=== PATIENT | male | born 1950 | race Hispanic/Latino ===

== ENCOUNTER 2017-12-19 10:48 | Day surgery (SDC) | payer OTHER ==
[2017-12-19] MEDS: CYCLOPENTOLATE 1% OPTH 2 ML ONE ×3 (11:00→11:10)
[2017-12-19] MEDS: PHENYLEPHRINE 10% OPTH 5ML ONE ×3 (11:00→11:10)
[2017-12-19] MEDS ORDERED: NS 0.9% VIAL 10 ML ONE (11:09)
[2017-12-19] MEDS ORDERED: BALANCED SALT IRRIG PLAIN 500 ML BTL IRR ONE (11:10)
[2017-12-19] MEDS ORDERED: DUOVISC 1 KIT OPTH ONE (11:10)
[2017-12-19] MEDS ORDERED: EPINEPHRINE/PF 1 MG/ML AMP ONE (11:10)
[2017-12-19] MEDS ORDERED: MOXIFLOXACIN HCL 10 DROPS/ML **OR USE OPTH ONE (11:10)
[2017-12-19] MEDS ORDERED: LIDOCAINE 2% MPF 5 ML VIAL ONE ×2 (11:11→12:31)
[2017-12-19] MEDS ORDERED: TETRACAINE HCL 0.5% 2ML OPTH ONE (11:11)
[2017-12-19] MEDS ORDERED: NA CHLORIDE 0.9% 500 ML ONE (11:11)
[2017-12-19] MEDS ORDERED: BUPIVACAINE 0.25% PF 10 ML VIAL ONE (11:11)
[2017-12-19] MEDS ORDERED: PROPOFOL 200 MG/20 ML VIAL IV ONE (12:31)
--- NOTE | 2017-12-19 13:11 | P.BOP ---
Preoperative diagnosis: Nuclear sclerotic, cortical and posterior subcapsular cataract OS Primary procedure: Phacoemulsification with IOL and LRI OS Estimated blood loss: None Anesthesia: Local (Subtenon's infusion with anesthesia for cataract surgery) Complications: None Implants: [id number] +14.0 Transferred to: Other (Day surgery) Condition: Good
--- NOTE | 2017-12-19 23:41 | OP ---
Date of Procedure: 12/19/2017 Surgeon: Beatriz Menchaca MD Anesthesiologist: 1. Mir Costa CRNA. 2. Edmundo Mcmahon M.D. Preoperative Diagnosis: Nuclear sclerotic, cortical, and posterior subcapsular cataract OS (left eye ). Operation Performed: Phacoemulsification with intraocular lens implant, OS (left eye). Anesthesia: Per cataract surgery. Complications: None. Description Of Procedure: In day surgery, the patient was prepped with Betadine and draped. A conju nctival incision was made in the inferior nasal quadrant with Brandy scissors. A sub-Tenon block c onsisting of a 1:1 mixture of 2% Xylocaine and 0.25% bupivacaine was placed through the conjunctival incision with a blunt cannula. A Honan balloon was placed over the eye and the patient was transferr ed to the operating room. In the operating room the patient was prepped and draped in the usual sterile fashion for ophthalmic surgery. A lid speculum was placed in the OS. Two paracentesis sites were made superiorly and infer iorly in the limbal cornea. Viscoat was placed in the anterior chamber and a crescent blade was used to make a corneal groove and tunnel, and a keratome was used to enter the anterior chamber. Provisc was placed in the anterior chamber and a 360 degree capsulotomy was performed with a cystitome. The lens was hydrodissected with BSS and rotated freely. The lens was removed with a stop and chop tech nique. A 6.81 phaco CDE was used to remove the lens. Residual cortex was removed with the irrigatio n and aspiration. Provisc was placed in the capsular bag. A [id number] +14.0 lens was placed in the caps ular bag without complications. Irrigation and aspiration was used to remove residual viscoelastic. The paracentesis sites were hydrated with BSS. The wound and paracentesis sites were inspected and found to be watertight. Vigamox 0.07 cc was placed intracamerally at the end of the procedure. The eye was irrigated with balanced salt solution. The eye was patched with a soft cotton patch and Rivers metal shield. The patient was returned to day surgery in good condition. Comments: A limbal relaxing incision was created at 95 degrees in the superior quadrant with a 600 m icron blade, a 35 degree arc was created. Residual PSC remained at the end of the procedure. Discharge Instructions: Mr. Soler is discharged to home in good condition and is to follow up with Yasmine Menchaca in the morning. ISAI/DOROTEO Voice ID: [id number] Report ID: [id number]
== END 2017-12-19 13:35 | disposition home or self-care (01) ==
LOC: OR 10:48
PROVIDERS: ATTEND Ophthalmology Retina Specialist
PROC: 08RK3JZ Replacement of Left Lens with Synthetic Substitute, Percutaneous Approach (ICD-10-PCS; principal; 2017-12-19 11:35)
DX: H25.12 Age-related nuclear cataract, left eye (principal); H25.012 Cortical age-related cataract, left eye; H25.042 Posterior subcapsular polar age-related cataract, left eye; I10 Essential (primary) hypertension; E78.00 Pure hypercholesterolemia, unspecified; E11.9 Type 2 diabetes mellitus without complications; Z88.1 Allergy status to other antibiotic agents; Z79.02 Long term (current) use of antithrombotics/antiplatelets; Z79.82 Long term (current) use of aspirin; Z87.891 Personal history of nicotine dependence; Z82.49 Family history of ischemic heart disease and other diseases of the circulatory system; Z83.3 Family history of diabetes mellitus; Z80.9 Family history of malignant neoplasm, unspecified
CPT/HCPCS: 66984; 82962; J0171

== ENCOUNTER 2018-01-30 07:24 | Day surgery (SDC) | payer OTHER ==
--- OUTSIDE RECORDS SUMMARY | 2018-01-30 07:28 | XMS REPORT ---
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 Problem Colonic polyp K63.5 Active Problem Diabetes mellitus type II, E11.9 Active controlled Problem Obesity (BMI 30-39.9) E66.9 Active Problem Allergic rhinitis, seasonal J30.2 Active Problem Edema R60.9 Active Problem Anemia in chronic illness D63.8 Active Problem Hyperlipidemia, mixed E78.2 Active Assessment Anemia in chronic kidney disease D63.1 Active Assessment Hyperlipidemia, mixed E78.2 Active Assessment Obesity (BMI 30-39.9) E66.9 Active Assessment Chronic kidney disease, stage 4 N18.4 Active (severe) Problem Anemia in chronic kidney disease D63.1 Active Problem Chronic kidney disease, stage 4 N18.4 Active (severe) Assessment HTN (hypertension) I10 Active Problem Calculus of kidney and ureter N20.2 Active Assessment Diabetes mellitus type II, E11.9 Active controlled Problem Asbestos exposure Z77.090 Active Medications Medication Code Code Instructions Start End Status Dosage System Date Date Coreg [facility] 57396799405 12.5 MG Orally Active 1 tablet twice daily Ferrous Sulfate [facility] 57467764840 324 (65 Fe) MG Active 1 tablet Orally Once a day Lasix [facility] 86028818175 40 MG Orally Active 1 tablet Once a day Tricor [facility] 72341140511 145 MG Active TAKE 1 TABLET BY MOUTH EVERY DAY Multivitamin [facility] 67514-66526 - Orally Active not defined - [facility] 26312047803 81 MG Orally Active 1 tablet Once a day Plavix [facility] 04272604453 75 MG Orally December Active 1 tablet Once a day 2017 NovoLog Flexpen [facility] 41981821668 100 UNIT/ML Active not Subcutaneous defined Tradjenta [facility] 97720813533 5 MG Active TAKE 1 TABLET BY MOUTH EVERY DAY HydrALAZINE HCl [facility] 12683634604 25 MG Active TAKE 1 TABLET BY MOUTH 3 TIMES A DAY Lipitor [facility] 14724899913 40 MG Orally Active 1 tablet Once a day Levemir Flexpen [facility] 21389938646 100 UNIT/ML Active not Subcutaneous defined Amlodipine [facility] 23985723475 5 MG Orally December Active 1 tablet Besylate Once a day 2017 Results No Known Results Summary Purpose eClinicalWorks Submission
[2018-01-30] MEDS ORDERED: LIDOCAINE HCL/PF 3.5% OPTH GEL ONE (08:01)
[2018-01-30] MEDS ORDERED: NA CHLORIDE 0.9% 500 ML ONE (08:01)
[2018-01-30] MEDS ORDERED: CYCLOPENTOLATE 1% OPTH 2 ML ONE (08:01)
[2018-01-30] MEDS ORDERED: BUPIVACAINE 0.25% PF 10 ML VIAL ONE (08:01)
[2018-01-30] MEDS ORDERED: TETRACAINE HCL 0.5% 2ML OPTH ONE (08:01)
[2018-01-30] MEDS ORDERED: LIDOCAINE 2% MPF 5 ML VIAL ONE (08:01)
[2018-01-30] MEDS ORDERED: NS 0.9% VIAL 10 ML ONE (08:03)
[2018-01-30] MEDS ORDERED: DUOVISC 1 KIT OPTH ONE (08:03)
[2018-01-30] MEDS ORDERED: BALANCED SALT IRRIG PLAIN 500 ML BTL IRR ONE (08:03)
[2018-01-30] MEDS ORDERED: LIDOCAINE 1% MPF 2 ML AMPULE ONE (08:03)
[2018-01-30] MEDS ORDERED: EPINEPHRINE/PF 1 MG/ML AMP ONE (08:03)
[2018-01-30] MEDS ORDERED: PHENYLEPHRINE 10% OPTH 5ML ONE (08:04)
[2018-01-30] MEDS ORDERED: MOXIFLOXACIN HCL 10 DROPS/ML **OR USE OPTH ONE (08:04)
[2018-01-30] MEDS ORDERED: Phenylephrine HCl 10 MG/ML 1 ML VIAL ONE (08:04)
[2018-01-30] MEDS ORDERED: MIDAZOLAM HCL 2 MG/2 ML INJ ONE (08:58)
[2018-01-30] MEDS ORDERED: FENTANYL CITR 100 MCG/2 ML ONE (09:51)
--- NOTE | 2018-01-30 10:09 | P.BOP ---
Preoperative diagnosis: Nuclear slerotic and posterior subcapsular cataract OD Postoperative diagnosis: Same Primary procedure: Phacoemulsification with Toric IOL OD Estimated blood loss: None Anesthesia: Local (Topical with anesthesia for cataract surgery) Complications: None Implants: [id number] +15.0 Transferred to: Other (Day surgery) Condition: Good
--- NOTE | 2018-01-30 20:22 | OP ---
Date of Procedure: 01/30/2018 Surgeon: Beatriz Menchaca MD Anesthesiologist: 1. Bita Shelton CRNA. 2. Sylwia Sykes CRNA. 3. Edmundo Mcmahon M.D. Preoperative Diagnoses: Nuclear sclerotic and posterior subcapsular cataract and regular astigmatism, OD. Operation Performed: Phacoemulsification with toric IOL, OD. Anesthesia: Per cataract surgery. Complications: None. Description Of Procedure: In the operating room the patient was prepped and draped in the usual sterile fashion for ophthalmic surgery. A lid speculum was placed in the OD. Two paracentesis sites were made superiorly and inferiorly in the limbal cornea. Viscoat was placed in the anterior chamber and a crescent blade was used to make a corneal groove and tunnel, and a keratome was used to enter the anterior chamber. Provisc was placed in the anterior chamber and a 360 degree capsulotomy was performed with a cystitome. The lens was hydrodissected with BSS and rotated freely. The lens was removed with a stop and chop technique. A 9.72 phaco CDE was used to remove the lens. Residual cortex was removed with the irrigation and aspiration. Provisc was placed in the capsular bag. A [id number] +15.0 at 91 degrees lens was placed in the capsular bag without complications. Irrigation and aspiration was used to remove residual viscoelastic. The paracentesis sites were hydrated with BSS. The wound and paracentesis sites were inspected and found to be watertight. Vigamox 0.07 cc was placed intracamerally at the end of the procedure. The eye was irrigated with balanced salt solution. The eye was patched with a soft cotton patch and Rivers metal shield. The patient was returned to day surgery in good condition. Comments: Akten was placed in the eye in Day Surgery and irrigated out with the eye with BSS in the OR. Preservative-free 1% lidocaine was placed in the anterior chamber. This was followed by 1:5000 epinephrine. Both were placed in the eye prior to Viscoat. Discharge Instructions: Mr. Soler was discharged to home in good condition and is to follow up with Dr. Menchaca in the morning. ISAI/DOROTEO Voice ID: [id number] Report ID: [id number] [facility]
== END 2018-01-30 10:38 | disposition home or self-care (01) ==
LOC: OR 07:24
PROVIDERS: ATTEND Ophthalmology Retina Specialist
PROC: 08RJ3JZ Replacement of Right Lens with Synthetic Substitute, Percutaneous Approach (ICD-10-PCS; principal; 2018-01-30 09:10)
DX: H25.11 Age-related nuclear cataract, right eye (principal); H25.041 Posterior subcapsular polar age-related cataract, right eye; H52.221 Regular astigmatism, right eye; E11.9 Type 2 diabetes mellitus without complications; I10 Essential (primary) hypertension; E78.00 Pure hypercholesterolemia, unspecified; Z79.02 Long term (current) use of antithrombotics/antiplatelets; Z79.82 Long term (current) use of aspirin; Z87.891 Personal history of nicotine dependence; Z82.49 Family history of ischemic heart disease and other diseases of the circulatory system; Z83.3 Family history of diabetes mellitus; Z80.9 Family history of malignant neoplasm, unspecified
CPT/HCPCS: 36415; 66984; 82962; 84132; J0171; J2001; J2250; J2370; J3010

== ENCOUNTER 2020-09-16 09:46 | Day surgery (SDC) | payer OTHER ==
[2020-09-16 10:35] LABS: Hematocrit 26.8 % (39.6-49.0)
[2020-09-16] MEDS ORDERED: EPOETIN ALFA-EPBX 10,000 UNIT/ML VIAL ONE (11:14)
[2020-09-16 16:06] VITALS: BP 141/57; TEMP 98.6; O2SAT 100
[2020-09-16 16:07] VITALS: BMI 36.8
== END 2020-09-16 11:06 | disposition home or self-care (01) ==
LOC: DS 09:46
PROVIDERS: ATTEND Internal Medicine
DX: N18.4 Chronic kidney disease, stage 4 (severe) (principal); D63.1 Anemia in chronic kidney disease
CPT/HCPCS: 36415; 85018; 85014; 96372; Q5106

== ENCOUNTER 2020-10-21 08:35 | Day surgery (SDC) | payer OTHER ==
--- OUTSIDE RECORDS SUMMARY | 2020-10-21 09:11 | XMS REPORT | Continuity of Care Document ---
:1950 Author Organization [facility] t Address [address] [place] [address] Care Team Providers Name Role Phone Unavailable Unavailable Unavailable Problems This patient has no known problems. Allergies, Adverse Reactions, Alerts Allergy Allergy Status Severity Reaction(s) Onset Inactive Treating Comm ents Source Name Type Date Date Clinician Cephalex Adverse Active rash [facility] ent Clinics Medications Ordered Filled Start Stop Current Ordering Indication Dosage Frequency Signature Comments Components Source Medication Medication Date Date Medication? Clinician (SIG) Name Name Lydia Musecepa 2020- No Na Hazel [address] [facility] 7-07 09-27 with meals [facility] 00[facility] 00 :00 [facility] One Touch One Touch 2020- No Na Hazel as [facility] Ultra Test Ultra Test -11-17 directed [facility] - Strips Strips 00:00: 00:00 [facility] 00 :00 [facility] Fenofibrate Fenofibrate Yes Na Hazel [address] [facility] Micronized Micronized 1-17 Mil[facility]ros es - 00:00: Memoria 00 l [facility] ent [facility] OneTouch OneTouch Yes Na Hazel USE TO [facility] Ultra Test Ultra Test CHECK Jessica kes - GLUCOSE Memoria TWICE l DAILY [facility] ent Clinics Accu-Chek Accu-Chek Yes Na Hazel as [facility] Smart View Smart View directed [facility] - test strips test strips M [facility]oria l [facility] ent Clinics NovoLog NovoLog Yes Na Hazel inject [address] Flexpen Flexpen units once Milagros es - a day [facility] ent Clinics Tricor Tricor Yes Na Hazel TAKE [address] [facility] TABLET BY [facility]TH [facility] EVERY DAY l [facility]ics Aspir-81 Aspir-81 Yes Na Hazel [address] [facility] Tradjenta Tradjenta Yes Na Hazel TAKE [address] [facility] TABLET BY [facility]TH [facility] EVERY DAY l [facility]ics Levemir Levemir Yes Na Hazel INJECT [facility] FlexTouch FlexTouch UNDER THE [facility] SKIN 52 [facility]oria UNITS l TWICE A [facility] DAY ent Clinics Amlodipine Amlodipine Yes Na Hazel [address] [facility] Besylate Besylate [facility]ics Coreg Coreg Yes Na Hazel [address] [facility]ics Coreg Coreg Yes Na Hazel [address] [facility] Lasix Lasix Yes Na Hazel [address] [facility] Multivitami Multivitami Yes Na Hazel not [facility] n n defined [facility] Lipitor Lipitor Yes Na Hazel [address] [facility] Plavix Plavix Yes Na Hazel [address] [facility] HydrALAZINE HydrALAZINE Yes Na Hazel [address] [facility] HCl HCl with food [facility] HydrALAZINE HydrALAZINE Yes Na Hazel TAKE [address] [facility] HCl HCl TABLET BY [facility]TH 3 [facility]oria TIMES A l DAY [facility]ics Ferrous Ferrous Yes Na Hazel [address] Sulfate Sulfate [facility] Atorvastati Atorvastati Yes Na Hazel TAKE [address] [facility] n Calcium n Calcium TABLET BY [facility] EVERY DAY l [facility]ics Lipitor Lipitor Yes Na Hazel [address] [facility]ics Carvedilol Carvedilol Yes Na Hazel TAKE [address] [facility] TABLET BY [facility] TWICE A l DAY [facility] Immunizations Ordered Filled Immunization Date Status Comments [facility] e Immunization Name Name FluAD FluAD 2019-07-[address] [facility] FluAD FluAD 2018-06-[address] [facility] Procedures This patient has no known procedures. Encounters Start End Encounter Admission Attending Care Care Encounter Source Date/Time Date/Time Type Type Clinicians Facility Department ID 2020-10-13 2020-10-13 Outpatient [facility] [id number] [facility] 2020-09-11 2020-09-11 [facility] [id number] [facility] 2020-08-12 2020-08-12 [facility] [id number] [facility] 2020-07-10 2020-07-10 Out[facility] [id number] [facility] 2020-07-08 2020-07-08 [facility] [id number] [facility] 2020-06-26 2020-06-26 Out[facility] [id number] [facility] 2020-06-24 2020-06-24 Outpatient [facility] [id number] [facility] 2020-06-24 2020-06-24 Out[facility] [id number] [facility] 2020-06-05 2020-06-05 [facility] [id number] [facility] 11:00:00 11:00:00 t Mark Forged [facility] Medicine Outpati ent Clinics 2020-04-23 2020-04-23 [facility] [id number] [facility] 08:16:00 08:16:00 [employer] [facility] Medicine Outpati ent Clinics 2020-04-03 2020-04-03 [facility] [id number] [facility] 04:56:00 04:56:00 t Celeste Celeste [employer] [facility] - [facility] Medicine l Medicine Outpati ent Clinics 2020-04-01 2020-04-01 [facility] [id number] [facility] 11:00:00 11:00:00 t Celeste Celeste [employer] s - Drive [facility] Medicine l Medicine Outpati ent Clinics 2020-02-13 2020-02-13 [facility] [id number] 11:56:00 11:56:00 t Celeste Celeste [employer] s - Drive [facility] Family Medicine l Medicine Outpati ent Clinics 2020-01-01 2020-01-01 [facility] [id number] 09:40:00 09:40:00 t Celeste Celeste [employer] - Drive [facility] Medicine l Medicine Outpati ent Clinics 2019-12-28 2019-12-28 [facility] [id number] 08:37:00 08:37:00 t Celeste Celeste [employer] s - Drive [facility] Medicine l Medicine Outpati ent Clinics 2019-11-23 2019-11-23 [facility] [id number] 11:11:00 11:11:00 t Celeste [employer] s - Pet[employer] [facility] Medicine l Medicine Outpati ent Clinics 2019-10-02 2019-10-02 [facility] [id number] 10:40:00 10:40:00 t Celeste [employer] s - Pet[employer] [facility] Medicine l Medicine Outpati ent Clinics 2019-07-04 2019-07-04 [facility] [id number] 10:40:00 10:40:00 t Celeste Celeste [employer] - Drive [facility] Medicine l Medicine Outpati ent Clinics 2019-04-04 2019-04-04 [facility] [id number] [facility] 10:40:00 10:40:00 t Celeste Celeste [employer] - Drive [facility] Medicine l Medicine Outpati ent Clinics 2019-01-03 2019-01-03 [facility] [id number] 10:20:00 10:20:00 t Celeste Celeste [employer] - [facility] Outpat[facility] ent Clinics 2018-10-27 2018-10-27 [facility] [id number] 10:19:00 10:19:00 t Celeste Celeste [employer] [facility] l Medicine Outpati ent Clinics 2018-10-11 2018-10-11 [facility] [id number] 15:24:00 15:24:00 t Celeste [employer] [facility] Medicine Outpati ent Clinics 2018-10-03 2018-10-03 [facility] [id number] 09:45:00 09:45:00 t Celeste Celeste [employer] - Pet[employer] [facility] Medicine Outpati ent Clinics 2018-09-25 2018-09-25 [facility] [id number] [facility] 16:04:00 16:04:00 t Celeste [employer] [facility] Medicine Outpati ent Clinics 2018-09-21 2018-09-21 [facility] [id number] [facility] 10:29:00 10:29:00 t Celeste [employer] [facility] Medicine Outpati ent Clinics 2018-06-27 2018-06-27 [facility] [id number] [facility] [facility] 09:45:00 09:45:00 t Celeste [employer] [facility] Medicine Outpati ent Clinics 2018-03-28 2018-03-28 [facility] [id number] [facility] 09:45:00 09:45:00 t Celeste [employer] [facility] Medicine Outpati ent Clinics 2017-12-27 2017-12-27 [facility] [id number] [facility] 09:15:00 09:15:00 t Mark Forged [facility] Medicine Outpati ent Clinics Results This patient has no known results.
--- OUTSIDE RECORDS SUMMARY | 2020-10-21 09:12 | XMS REPORT ---
:1950 Author Organization [facility] Address [address] [place] [address] Care Team Providers Name Role Phone Hazel Unavailable [phone] PROBLEMS Type Condition ICD9-CM [id number] Onset Condition SNOMED Code Notes Code Code Dates Status Problem HTN (hypertension) I10 Active 33663056 Problem Renal disease N28.9 Active 91468256 Problem Diabetes mellitus type E11.9 Active 286828036 II, controlled Problem Edema R60.9 Active 672451723 Problem Allergic rhinitis, J30.2 Active 274856832 seasonal Problem Colonic polyp K63.5 Active 98248771 Problem Anemia in chronic D63.8 Active 496233270 illness Problem Hyperlipidemia, mixed E78.2 Active 684592816 Problem Asbestos exposure Z77.090 Active 007136510 Problem Obesity (BMI 30-39.9) E66.9 Active 988004442 Problem Influenza vaccine Z23 Active 74735715558458 administered Problem Dry eye syndrome of H04.123 Active 01190532 both eyes Problem Calculus of kidney and N20.2 Active 275732720 ureter Problem Anemia in chronic D63.1 Active 39367810132930 8 kidney disease Problem History of exposure to Z77.090 Active 922336875 asbestos Problem 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 Problem Chronic kidney N18.4 Active 313574105 disease, stage 4 (severe) Problem OA (osteoarthritis) M19.90 Active 324977056 Problem Type 2 diabetes E11.22 Active 01977743 mellitus with diabetic chronic kidney disease Problem jail current use Z79.4 Active 041344700 of insulin Problem Hypertriglyceridemia E78.1 Active 646605333 ALLERGIES Allergen (clinical drug Drug/Non Drug Allergy Reaction Allergy Type Onset Date Status ingredient) documented on EMR cephalexin Cephalexin([facility] rash Drug Allergy Active Code:[address]-88) ENCOUNTERS from 1950 to 2020-10-13 Encounter Location Date Provider Diagnosis [facility] [address] [facility] Sep, Na Hazel Typ e 2 diabetes Family Medicine [address] [place] [address] chronic kidney disease E11.22 ; Hypert ensive chronic kidney disease with stage 1 th rough stage 4 chronic kidney disease, or uns pecified chronic kidney disease I12.9 ; HTN (hypertension) I10 ; Chronic kidney disease, stage 4 (severe ) N18.4 ; Anemia in chr onic kidney disease D63.1 ; Edema R60.9 and Hyperlipidemia, mixed E78.2 IMMUNIZATIONS Vaccine Route Administration Date Status FluAD IM Intramuscular Jul 08, 2020 Administered FluAD IM Intramuscular Jul 04, 2019 Administered FluAD IM Intramuscular Jun 27, 2018 Administered SOCIAL HISTORY Tobacco Use: Social History Observation Description Date Details (start date - stop date) Former Smoker Sex Assigned At : Social History Observation Description Sex Assigned At Unknown PHQ9 Question Answer Notes Little interest or pleasure in doing things Not at all Feeling down, depressed, or hopeless Not at all Trouble falling or staying asleep or sleeping too much Not a t all Feeling tired or having little energy Several days Poor appetite or overeating Not at all Feeling bad about yourself, or that you are a failure, or No t at all have let yourself or your family down Trouble concentrating on things, such as reading the Not at all newspaper or watching television Moving or speaking so slowly that other people could have No t at all noticed; or the opposite, being so fidgety or restless that you have been moving around a lot more than usual Total Score 1 Interpretation Minimal Depression Thoughts that you would be better off or of hurting Not at all yourself in some way Tobacco Use/Smoking Question Answer Notes Are you a former smoker Additional Findings: Tobacco Non-User Ex-moderate cigarette smoker (10-19/day) Tobacco use other than smoking: Question Answer Notes Are you an other tobacco user? No REASON FOR REFERRAL No Information VITAL SIGNS Height 66.00 in Sep, Weight 224.6 lbs Sep, Temperature 97.4 degrees Fahrenheit Sep, BMI 36.25 kg/m2 Sep, Oximetry 96 % Sep, Respiratory Rate 16 /min Sep, Blood pressure systolic 152 mm Hg Sep, Blood pressure diastolic 71 mm Hg Sep, MEDICATIONS Medication SIG (Take, Route, Notes Start Date End Date Status Frequency, Duration) Tricor 145 MG TAKE 1 TABLET BY Not-T aking MOUTH EVERY DAY for 90 Tradjenta 5 MG TAKE 1 TABLET BY Acti ve MOUTH EVERY DAY for 90 days Lipitor 40 MG 1 tablet Orally Once A ctive a day for 90 Levemir FlexTouch 100 inject under the skin Active UNIT/ML 50 units twice a day Subcutaneous for 90 days OneTouch Ultra Test - USE TO CHECK GLUCOSE Active TWICE DAILY for 90 days Accu-Chek Smart View as directed Sub q Active test strips strip twice a day for 90 days Flonase 50 MCG/DOSE 1 spray in each Jun, Active nostril Nasally Once a day for 90 day(s) NovoLog Flexpen 100 inject 2 units once a Active UNIT/ML day Subcutaneous Coreg 25 MG 1 tablet Orally twice Ac tive daily for 90 days Atorvastatin Calcium TAKE 1 TABLET BY Active 40 MG MOUTH EVERY DAY for 90 HydrALAZINE HCl 50 MG 1 tablet with food Active Orally Four times a day prn SBO >160 for 90 days Tradjenta 5 MG TAKE 1 TABLET BY Acti ve MOUTH EVERY DAY for 90 days Multivitamin - Orally Active Fenofibrate 1 capsule Orally Once Sep, Not-Taking Micronized 130 MG a day for 90 days Levemir FlexTouch 100 INJECT UNDER THE SKIN Active UNIT/ML 52 UNITS TWICE A DAY for 90 Coreg 12.5 MG 1 tablet Orally twice Active daily for 90 Plavix 75 MG 1 tablet Orally Once Ac tive a day for 90 day(s) Lipitor 40 MG 1 tablet Orally Once A ctive a day for 90 days Vascepa 1 GM TAKE 2 CAPSULES BY Acti ve MOUTH TWICE A DAY WITH MEALS for 90 BD Pen Needle Belen as directed Dx E11.22 Jun, Active 2nd Gen 32G X 4 MM SC twice daily for 90 days Amlodipine as directed Orally Sep, Acti ve Besy-Benazepril HCl 10-40 MG Aspir-81 81 MG 1 tablet Orally Once Active a day Amlodipine Besylate 5 1 tablet Orally Once Not-Taking MG a day for 90 NovoLog Flexpen 100 INJECT THREE TIMES Active UNIT/ML DAILY PER SLIDING SCALE for 90 Ferrous Sulfate 324 1 tablet Orally Once Active (65 Fe) MG a day for 90 day(s) One Touch Ultra Test as directed In Vitro Oct, Oct, Active Strips 1 twice a day for 90 days HydrALAZINE HCl 25 MG TAKE 1 TABLET BY Unknown MOUTH 3 TIMES A DAY for 90 Lasix 40 MG 1 tablet Orally Once Unk nown a day Carvedilol 25 MG TAKE 1 TABLET BY Ac tive MOUTH TWICE A DAY for 90 PROCEDURES No Information RESULTS No Results REASON FOR VISIT 1 month follow up , dm2, CKD, elevated BP, BERRY MEDICAL (GENERAL) HISTORY Type Description Date Medical History Diabetes mellitus type II, controlled Medical History HTN (hypertension) Medical History Hyperlipidemia, mixed Medical History Obesity Medical History Other specified diabetes mellitus with d iabetic polyneuropathy Medical History Allergic rhinitis, seasonal Medical History Renal disease Medical History Colonic polyp Medical History Edema Medical History Calculus of kidney and ureter Medical History Anemia in chronic illness Medical History Asbestos exposure Surgical History tonsillectomy Surgical History right cheek laceration repair at 1 year old due to trauma Hospitalization History pneumonia 2001 [place] No Information Health Concerns No Information MEDICAL EQUIPMENT No Information MENTAL STATUS No Information FUNCTIONAL STATUS No Information ASSESSMENTS Encounter Date Diagnosis Assessment Notes Treatment Notes Treatm ent Clinical Notes Sep, Type 2 diabetes low carb 1800 ADA mellitus with diet. Avoid sodas, diabetic chronic juices and remember kidney disease portion control. Take (ICD-10 - E11.22) your medication as prescribed. Monitor your blood sugar at home as directed and keep a log to bring back with you to your next visit for review. Schedule your annual diabetic eye exam with your eye doctor to screen for diabetic retinopathy. Check your feet daily to make sure you have no open wounds. Sep, Hypertensive -- Maintian a low pt to f/u with chronic kidney salt DASH diet, cardiology in disease with stage exercise, weight loss AM for 1 through stage 4 and decrease stress adj ustment of chronic kidney recommended. Keep BP BP me ds disease, or log and will review -- will f/u unspecified next visit. If blood with ne phro as chronic kidney pressure consistently gett ing procrit disease (ICD-10 - above 140/90 return inj ections may I12.9) to clinic for help with adjustment of meds. anemia a nd Try to quit smoking improve BERRY and if you currently stress smoke. Decrease improving BP . caffeine intake if -- Need t o stop possible. Afrin as - - advised to avoid patient has phenylephrine and severe pseudoephedrine in allergies and otc sinus/cold meds dependen t on containing these Afrin discu ss decongestants which harms of work by continued use vasoconstricting will send blood vessels to help flonas e. decrease congestion however may cause your BP to rise. -- If you have a cold may take Coricidin brand of cold medicines safe for high blood pressure patients. Sep, HTN (hypertension) --need to take Nephro stopped (ICD-10 - I10) CARVEDILOL 25mg PO amlodi pine 10mg BID as never daily to help increased blood control BP. pressure medicat ion -- increase HYDRALAZINE FROM 50 mg qid ( every 6 hours) hold if SBP less 140. -- Pt will discuss with cardiology regarding elevated BP next visit upcoming, and in meantime will increase hydralazine from twice daily to every 6 hours. May consider clonidine at next visit. Maintian a low salt DASH diet, exercise, weight loss and decrease stress recommended. Keep BP log and will review next visit. If blood pressure consistently above 140/90 return to clinic for adjustment of meds. Try to quit smoking if you currently smoke. Decrease caffeine intake if possible. Sep, Chronic kidney will monitor kidney disease, stage 4 function. - Avoid (severe) (ICD-10 - NSAIDs ( such as N18.4) ibuprofen, motrin, aleive) - Hydrate your kidneys by drinking plenty of water. Sep, Anemia in chronic kidney disease (ICD-10 - D63.1) Sep, Edema (ICD-10 - maintain low salt R60.9) diet, elevate feet above chest level when possible, recommend compression stokings during day. take meds as prescribed. -likely related to CKD stage IV. Sep, Hyperlipidemia, notify patient of mixed (ICD-10 - high cholesterol TC=, E78.2) TG =, LDL= ( goal LDL is less 100 and less than 70 if you have heart disease or diabetes) per lab report.Please maintain low fat diet, decrease fast food and fried foods. Increase fruit and vegetable intake. exercise as tolerated 30minutes per day at least 3 days a week. May take fish oil 1000mg twice daily to help increase good cholesterol (HDL) and take metamucil / eat oatmeal in AM to help lower bad cholesterol. Sep, Other -- Medications reviewed and updated. -- Dietary and Lifestyle modifications discussed with patient regarding low fat low salt diet diet, exercise and weight management. -- Treatment options, risks and benefits, side effects reviewed in detail. Patient accepts risk. -- Advised on signs/symptoms to monitor and when to call clinic and/or visit the nearest ER. Patient verbalized understanding and agreed with plan. PLAN OF TREATMENT Medication Medication Name Sig Start Date Stop Date HydrALAZINE HCl 50 MG 1 tablet with food Orally Four times a day prn SBO >160 for 90 days Amlodipine Besy-Benazepril HCl as directed Orally Sep, 10-40 MG Tradjenta 5 MG TAKE 1 TABLET BY MOUTH EVERY DAY for 90 days Coreg 25 MG 1 tablet Orally twice daily for 90 days Treatment Notes Assessment Notes Clinical Notes Type 2 diabetes mellitus low carb 1800 ADA diet. Avoid with diabetic chronic kidney sodas, juices and remember disease portion control. Take your medication as prescribed. Monitor your blood sugar at home as directed and keep a log to bring back with you to your next visit for review. Schedule your annual diabetic eye exam with your eye doctor to screen for diabetic retinopathy. Check your feet daily to make sure you have no open wounds. Hypertensive chronic kidney -- Maintian a low salt DASH pt t o f/u with cardiology disease with stage 1 through diet, exercise, weight loss and in AM for adjustment of stage 4 chronic kidney decrease stress recommended. BP meds- - will f/u with disease, or unspecified Keep BP log and will review next nep hro as getting procrit chronic kidney disease visit. If blood pressure injections m ay help with consistently above 140/90 return anemia and improve BERRY to clinic for adjustment of and stress i mproving meds. Try to quit smoking if you BP.-- N eed to stop Afrin currently smoke. Decrease as patient has severe caffeine intake if possible.- - allergie s and dependent advised to avoid phenylephrine on Afrin discuss harms of and pseudoephedrine in otc continued use will send sinus/cold meds containing these flonase . decongestants which work by vasoconstricting blood vessels to help decrease congestion however may cause your BP to rise.-- If you have a cold may take Coricidin brand of cold medicines safe for high blood pressure patients. HTN (hypertension) --need to take CARVEDILOL 25mg Nephro s topped PO BID as never increased blood amlodipi ne 10mg daily to pressure medication-- increase help cont rol BP. HYDRALAZINE FROM 50 mg qid ( every 6 hours) hold if SBP less 140.-- Pt will discuss with cardiology regarding elevated BP next visit upcoming, and in meantime will increase hydralazine from twice daily to every 6 hours. May consider clonidine at next visit.Maintian a low salt DASH diet, exercise, weight loss and decrease stress recommended. Keep BP log and will review next visit. If blood pressure consistently above 140/90 return to clinic for adjustment of meds. Try to quit smoking if you currently smoke. Decrease caffeine intake if possible. Chronic kidney disease, will monitor kidney function. - stage 4 (severe) Avoid NSAIDs ( such as ibuprofen, motrin, aleive) - Hydrate your kidneys by drinking plenty of water. Edema maintain low salt diet, elevate feet above chest level when possible, recommend compression stokings during day.take meds as prescribed.-likely related to CKD stage IV. Hyperlipidemia, mixed notify patient of high cholesterol TC=, TG =, LDL= ( goal LDL is less 100 and less than 70 if you have heart disease or diabetes) per lab report.Please maintain low fat diet, decrease fast food and fried foods. Increase fruit and vegetable intake. exercise as tolerated 30minutes per day at least 3 days a week. May take fish oil 1000mg twice daily to help increase good cholesterol (HDL) and take metamucil / eat oatmeal in AM to help lower bad cholesterol. Treatment Notes Test Name Order Date COMPREHENSIVE METABOLIC PANEL(CMP) 2020-10-13 LIPID PANEL WITH REFLEX TO DIRECT LDL 2020-10-13 CBC (H/H, RBC, INDICES, WBC, PLT) 2020-10-13 MICROALBUMIN, RANDOM URINE (W/CREATININE) 2020-10-13 HEMOGLOBIN A1C WITH MPG 2020-10-13 Next Appt Details 3 Months Reason: Provider Name:Ana Luisa Hazel 2021-01-12 11:0 0:00 AM, [address], [place], [address], Insurance Providers Payer Name Payer Address Payer Insured Patient Coverage Cover age Phone Name Relationship to Start Date End Date Insured [employer] [address] [phone] Errol Sol[address] [facility] [id number] [phone] MEDICARE Attn Part B [id number] Errol Soler 2014 [employer] Claims [address] [facility] [id number]
[2020-10-21 10:06] VITALS: BP 125/54; TEMP 97.1; O2SAT 100; BMI 36.8
== END 2020-10-21 09:26 | disposition home or self-care (01) ==
LOC: DS 08:35
PROVIDERS: ATTEND Internal Medicine
DX: N17.9 Acute kidney failure, unspecified (principal); R80.9 Proteinuria, unspecified; D63.1 Anemia in chronic kidney disease
CPT/HCPCS: 36415; 85014; 85018

== ENCOUNTER 2021-06-01 08:44 | Inpatient (IN) | payer OTHER ==
--- OUTSIDE RECORDS SUMMARY | 2021-06-01 08:55 | XMS REPORT | Continuity of Care Document ---
:1950 Author Organization [facility] t Address [address] [place] [address] Care Team Providers Name Role Phone Joselo Blanton Attending Clinician Unavailable HARKINS Admitting Clinician Unavailable Payers Payer Name Policy Type Policy Number Effective Date Expiration Date S ource Problems This patient has no known problems. Allergies, Adverse Reactions, Alerts Allergy Allergy Status Severity Reaction(s) Onset Inactive Treating Comm ents Source Name Type Date Date Clinician cephalex DA Active [facility]15 [place] 00:00: [facility] [address] Cephalex Adverse Active rash [facility] Medications Ordered Filled Start Stop Current Ordering Indication Dosage Frequency Signature Comments Components Source Medication Medication Date Date Medication? Clinician (SIG) Name Name Lydia Musecepa 2020- No Na Harkins [address] [facility] 7-07 09-27 with meals [facility] :00 [facility] Clin[facility] One Touch One Touch 2020- No Na Harkins as [facility] Ultra Test Ultra Test 11-23 directed [facility] - Strips Strips 00:00: 00:00 [facility] 00 :00 [facility] Fenofibrate Fenofibrate Yes Na Harkins [address] [facility] Micronized Micronized 1-17 [place] es - 00:00: [facility]oria 00 [facility] ent Clinics OneTouch OneTouch Yes Na Harkins USE TO [facility] Ultra Test Ultra Test CHECK Jessica kes - GLUCOSE [facility] TWICE l DAILY [facility] Accu-Chek Accu-Chek Yes Na Harkins as [facility] Smart View Smart View directed [facility] - test strips test strips M emoria l [facility] NovoLog NovoLog Yes Na Harkins inject [address] Flexpen Flexpen units once [place] es - a day [facility] Tricor Tricor Yes Na Harkins TAKE [address] [facility] TABLET BY [facility]TH [facility] EVERY DAY l [facility] Aspir-81 Aspir-81 Yes Na Harkins [address] [facility] Tradjenta Tradjenta Yes Na Harkins TAKE [address] [facility] TABLET BY [facility] EVERY DAY l [facility] Levemir Levemir Yes Na Harkins INJECT [facility] FlexTouch FlexTouch UNDER THE [facility] - SKIN 52 [facility]oria UNITS l TWICE A [facility] ent Clinics Amlodipine Amlodipine Yes Na Harkins [address] [facility] Besylate Besylate [facility] Coreg Coreg Yes Na Harkins [address] [facility] Coreg Coreg Yes Na Harkins [address] [facility] Lasix Lasix Yes Na Harkins [address] [facility] Multivitami Multivitami Yes Na Harkins not [facility] n n defined [facility] Lipitor Lipitor Yes Na Harkins [address] [facility] Plavix Plavix Yes Na Harkins [address] [facility] HydrALAZINE HydrALAZINE Yes Na Harkins [address] [facility] HCl HCl with food [facility] HydrALAZINE HydrALAZINE Yes Na Harkins TAKE [address] [facility] HCl HCl TABLET BY [facility]TH 3 [facility] TIMES A l DAY [facility] Ferrous Ferrous Yes Na Harkins [address] Sulfate Sulfate [facility] Atorvastati Atorvastati Yes Na Harkins TAKE [address] [facility] n Calcium n Calcium TABLET BY [facility] EVERY DAY l Outpati ent Clinics Lipitor Lipitor Yes Na Harkins [address] [facility] Carvedilol Carvedilol Yes Na Harkins TAKE [address] [facility] TABLET BY [facility] TWICE A l DAY [facility] ent Clinics Immunizations Ordered Filled Immunization Date Status Comments Sour e Immunization Name Name Carola Srivastava 2019-07-[address] [facility] Carola Srivastava 2018-06-[address] [facility] Procedures This patient has no known procedures. Encounters Start End Encounter Admission Attending Care Care Encounter Source Date/Time Date/Time Type Type Clinicians Facility Department ID 2021-05-19 2021-05-19 Outpatient [facility] DAYS [id number] [facility] 03:28:00 03:28:00 w, [id number] [facility] 2021-05-15 2021-05-15 Outpatient [facility] REF [id number] [facility] 13:19:00 13:19:00 w, [id number] [facility] 2021-04-14 2021-04-[address] [id number]00 [facility] 2021-04-09 2021-04-[address] [facility] [id number] [facility] 2021-01-12 2021-01-[address] [facility] [id number] [facility] 2020-10-13 2020-10-[address] [facility] [id number] [facility] 2020-09-11 2020-09-[address] [facility] [id number] [facility] 2020-08-12 2020-08-[address] [id number] 2020-07-10 2020-07-10 [facility] [id number] [facility] 2020-07-08 2020-07-08 [facility] [id number] [facility] 2020-06-26 2020-06-[address] [facility] [id number] [facility] 2020-06-24 2020-06-[address] [facility] [id number] [facility] 2020-06-24 2020-06-[address] [facility] [id number] [facility] 2020-06-05 2020-06-05 [facility] [id number] [facility] [address] 11:00:00 11:00:[address] [place] [address] [place] - Drive [facility] l Medicine Outpati ent Clinics 2020-04-23 2020-04-23 [facility] [id number] 08[facility]16:00 08:16:00 [place] [address] Luke s - Drive [facility] Outpati ent Clinics 2020-04-03 2020-04-03 [facility] [id number] 04:56:00 04:56:00 [place] [address] Luke s - Drive [facility] Outpati ent Clinics 2020-04-01 2020-04-01 [facility] [id number] 11:00:00 11:00:00 [place] [address] Luke s - Drive [facility] Medicine Outpati ent Clinics 2020-02-13 2020-02-13 [facility] [id number] 11:56:00 11:56:00 [place] [address] Luke s - Drive [facility] Medicine Outpati ent Clinics 2020-01-01 2020-01-01 [facility] [id number] 09:40:00 09:40:00 [place] [address] Luke s - Drive [facility] Medicine Outpati ent Clinics 2019-12-28 2019-12-28 [facility] [id number] 08:37:00 08:37:00 [place] [address] Luke s - Drive [facility] Medicine l Medicine Outpati ent Clinics 2019-11-23 2019-11-23 [facility] [id number] 11:11:00 11:11:00 [place] Luke s - Drive [facility] Medicine l Medicine Outpati ent Clinics 2019-10-02 2019-10-02 [facility] [id number] 10:40:00 10:40:00 [place] [employer] s - Drive [facility] Medicine l Medicine Outpati ent Clinics 2019-07-04 2019-07-04 [facility] [id number] 10:40:00 10:40:00 [place] Luke s - Drive [facility] Medicine l Medicine Outpati ent Clinics 2019-04-04 2019-04-04 [facility] [id number] 10:40:00 10:40:00 [place] [employer] s - Drive [facility] l Medicine Outpati ent Clinics 2019-01-03 2019-01-03 [facility] [id number] 10:20:00 10:20:00 [place] Luke s - Drive [facility] Medicine l Medicine Outpati ent Clinics 2018-10-27 2018-10-27 [facility] [id number] 10:19:00 10:19:00 [place] Luke s - Drive [facility] Medicine l Medicine Outpati ent Clinics 2018-10-11 2018-10-11 [facility] [id number] [address] 15:24:00 15:24:00 [place] Luke s - Drive [facility] Medicine l Medicine Outpati ent Clinics 2018-10-03 2018-10-03 [facility] [id number] 09:45:00 09:45:00 [place] [address] [facility] Outpati ent Clinics 2018-09-25 2018-09-25 [facility] [id number] 16:04:00 16:04:00 t [employer] [facility] 2018-09-21 2018-09-21 [facility] [id number] 10:29:00 10:29:00 [place] [email or web address] [employer] [facility] Outpati ent Clinics 2018-06-27 2018-06-27 [facility] [id number] 09:45:00 09:45:00 t [employer] [place] [employer] [facility] Outpati ent Clinics 2018-03-28 2018-03-28 [facility] [id number] 09:45:00 09:45:00 [employer] [place] [employer] [facility] Outpati ent Clinics 2017-12-27 2017-12-27 [facility] [id number] 09:15:00 09:15:00 [place] [email or web address] [facility] Results Test Description Test Time Test Comments Results Result Comments Source GLUBED 2021-05-19 12:35:00 Test Item Value Reference Range Interpretation Comme nts GLUBED (test code = GLUBED) 85 MG/DL 70-105 N [id number] 09:50:00 Test Item Value Reference Range Interpretation Comments POTASSIUM (test code = K) 5.2 mmol/L 3.5-5.1 H [id number] 09:18:00 Test Item Value Reference Range Interpretation Comments GLUBED (test code = GLUBED) 85 MG/DL 70-105 N COVID Asymptomatic IH [id number] 12:51:00 Test Item Value Reference Interpretation Comments Range COVID Negative Negative A negative resu lt does not Asymptomatic IH preclude the SARS-COV-2 NTX (test code = viralinfect ion and should not COVNONPUINTX) be used as the sole basis forpatient linnea gement decisions. Nega tive results must becombined with clinical observations, p atient history, andepidemiologi baldemar information. Vi ral levels in clinicalsamples below the detection limit of the assay could lead tone gative results. This test was p erformed using the [employer] Smart TM COVID-19 PCRassay. This test was developed and i ts performancechar acteristics were determined by [facility]. Thi s test has notbeen FDA babak ared or approved. This test is authorized by t heFDA under Emergency Use Authorization(E UA). The EUA willremain in e ffect unless it is terminated o r revoked by FDA . Testing p arameters have not been valida blanca for screeningasympt omatic patients. This test was validated accor ding to the FDA's guidanced ocument "Policy for Diagnostics testing in LaboratoriesCer tified to Perform High Co mplexity Testing under C JOSE JUAN". First test? UnknownEmployed in Healthcare? UnknownSymptomatic as defined by CDC? UnknownHospitalizeddue to COVID? UnknownIn ICU due to COVID? UnknownResident in a congregate care setting? Unknown? NoAge at collection: YBASIC METABOLIC [id number] 13:00:00 Test Item Value Reference Range Interpretation Comments SODIUM (test code = 143 mmol/L 136-145 N Please n ote: New NA) Reference Range Oct 2020 POTASSIUM (test code 5.3 mmol/L 3.5-5.1 H = K) CHLORIDE (test code = 115 mmol/L 98-107 H Please note: New CL) Reference Range Oct 2020 CARBON DIOXIDE (test 21 mmol/L 20-31 N Please note: New code = CO2) Reference Range Oct 2020 GLUCOSE (test code = 143 mg/dL 74-106 H Please note: New GLU) Reference Range Oct 2020 BLOOD UREA NITROGEN 59 mg/dL 9-23 H Please n ote: New (test code = BUN) Reference Range Oct 2020 GLOMERULAR FILTRATION 17 >60 L The es timated RATE (test code = glomerular filtration GFR) rate is compute d usingpatient ra ce, age (>18), sex, and serum creatinine. If anyof the needed data elements are mi ssing the Laboratory cannot compute an petra mation of the glomerul ar filtration rate . CREATININE (test code 3.70 mg/dL 0.70-1.30 H Please note: New = CREAT) Reference Range Oct 2020 CALCIUM (test code = 8.2 mg/dL 8.7-10.4 L Please note: New CA) Reference Range Oct 2020 BASIC METABOLIC [id number] 13:00:00 Test Item Value Reference Range Interpretation Comments SODIUM (test code = NA) mmol/L 136-145 POTASSIUM (test code = K) 5.3 mmol/L 3.5-5.1 H CHLORIDE (test code = CL) mmol/L 98-107 CARBON DIOXIDE (test code = CO2) mmol/L 20-31 GLUCOSE (test code = GLU) mg/dL 74-106 BLOOD UREA NITROGEN (test code = mg/dL 9-23 BUN) GLOMERULAR FILTRATION RATE (test >60 code = GFR) CREATININE (test code = CREAT) mg/dL 0.70-1.30 CALCIUM (test code = CA) mg/dL 8.7-10.4 CBC W/AUTO [id number] 12:48:00 Test Item Value Reference Range Interpretation Comments WHITE BLOOD CELL (test code = 5.4 x10 3/uL 4.8-10.8 N WBC) RED BLOOD CELL (test code = 2.74 x10 6/uL 4.70-6.10 L RBC) HEMOGLOBIN (test code = HGB) 9.0 g/dL 14.0-18.0 L HEMATOCRIT (test code = HCT) 27.7 % 42.0-52.0 L MEAN CELL VOLUME (test code = 101.1 fL 80.0-94.0 H MCV) MEAN CELL HGB (test code = MCH) 32.8 pg 27-31 H MEAN CELL HGB CONCENTRATION 32.5 G/DL 33-36.5 L (test code = MCHC) RED CELL DISTRIBUTION WIDTH 13.7 % 12.9-16.9 N (test code = RDW) PLATELET COUNT (test code = 142 x10 3/uL 150-440 L PLT) MEAN PLATELET VOLUME (test code 12.2 fL 8.9-12.4 N = MPV) NEUTROPHIL % (test code = NT%) 67.3 % 42.2-75.2 N LYMPHOCYTE % (test code = LY%) 17.2 % 20.5-51.1 L MONOCYTE % (test code = MO%) 9.9 % 1.7-9.3 H EOSINOPHIL % (test code = EO%) 5.0 % 0.0-7.0 N BASOPHIL % (test code = BA%) 0.4 % 0-2.5 N NEUTROPHIL # (test code = NT#) 3.61 x10 3/uL 1.80-7.70 N LYMPHOCYTE # (test code = LY#) 0.92 x10 3/uL 1.00-4.80 L MONOCYTE # (test code = MO#) 0.53 x10 3/uL 0.00-0.80 N EOSINOPHIL # (test code = EO#) 0.27 x10 3/uL 0.00-0.45 N BASOPHIL # (test code = BA#) 0.02 x10 3/uL 0.0-0.20 N
[2021-06-01 09:39] LABS: Protime INR 1.09
[2021-06-01 09:51] LABS: ALT/SGPT 28 U/L (12-78); AST/SGOT 26 U/L (15-37); Albumin 3.1 g/dL (3.4-5.0); Alkaline Phosphatase 65 U/L (45-117); BUN Blood Urea Nitrogen 60 mg/dL (7-18); Bicarbonate 21 mmol/L (21-32); Bilirubin Direct 0.1 mg/dL (0-0.2); Bilirubin Total 0.4 mg/dL (0.2-1.0); Glucose Level 98 mg/dL (74-106); Magnesium 2.4 mg/dL (1.8-2.4); NT PRO-BNP 1074 pg/mL (<125); Potassium 4.6 mmol/L (3.5-5.1); Sodium Level 147 mmol/L (136-145); Troponin (Emerg Dept Use Only) < 0.02 ng/mL (0.0-0.045)
[2021-06-01 09:58] LABS: Absolute Lymphocytes (CBC) 0.6 K/uL (0.7-4.9); Basophils % 0.6 % (0-1.3); Lymphocytes % 10.6 % (15.3-44.8); MPV 10.2 fL (7.6-11.3); RBC Red Blood Cell Count 2.92 M/uL (4.33-5.43)
--- NOTE | 2021-06-01 09:58 | RAD REPORT ---
EXAM DESCRIPTION: Esvin Single View06/01/2021 9:23 am CLINICAL HISTORY: Chest pain COMPARISON: 2019 FINDINGS: The lungs appear clear of acute infiltrate. The heart is normal size IMPRESSION: No acute abnormalities displayed
[2021-06-01] MEDS ORDERED: ASPIRIN 81 MG CHEWABLE TABLET ONE (10:43)
[2021-06-01] MEDS ORDERED: MORPHINE 4 MG/ML SYR ONE (10:44)
[2021-06-01] MEDS ORDERED: ONDANSETRON 4 MG/2 ML VIAL ONE (10:44)
--- NOTE | 2021-06-01 11:17 | ER ---
Nurse's Notes [facility] Name: Errol Soler Age: 70 yrs Sex: Male : 1950 Arrival Date: 06/01/2021 Time: 08:44 Bed 2 Private MD: Diagnosis: Chest pain, unspecified Presentation: 06/01 08:53 Chief complaint: Patient states: Woke up at 0500 this morning with chest pain. ss Coronavirus screen: Vaccine status:. Ebola Screen: Patient denies exposure to infectious person. Patient denies travel to an Ebola-affected area in the 21 days before illness onset. Initial Sepsis Screen: Does the patient meet any 2 criteria? No. Patient's initial sepsis screen is negative. Does the patient have a suspected source of infection? No. Patient's initial sepsis screen is negative. Risk Assessment: Do you want to hurt yourself or someone else? Patient reports no desire to harm self or others. Onset of symptoms was June 01, 2021. 08:53 Method Of Arrival: Wheelchair 08:53 Acuity: TRISTIAN 2 10:24 Coronavirus screen: Vaccine status: Patient reports receiving the 2nd dose of the covid sv vaccine. Patient reports receiving the 1st dose of the Covid vaccine. Historical: - Allergies: 08:55 Cephalexin; ss - Home Meds: 10:44 vasepa 1gm 2 tabs BID [Active]; sodium bicarbonate 650 mg Oral tab 2 tab twice a day sv [Active]; Vitamin D3 50 mcg (2,000 unit) oral cap daily [Active]; aspirin 81 mg Oral chew 1 tab once daily [Active]; carvedilol 25 mg oral tab 2 times per day [Active]; amlodipine-benazepril 10-40 mg oral cap 1 cap once daily [Active]; Lasix 40 mg Oral tab 1 tab once daily [Active]; ventassa 8.4 mg daily [Active]; Levemir U-100 Insulin 100 unit/mL subcutaneous soln 32 unit twice a day [Active]; multivitamin Oral daily [Active]; trujenta 5 mg daily [Active]; atorvastatin 40 mg oral tab once daily [Active]; Iron CR 250 mg Oral cpER twice weekly [Active]; Procrit 1000 units weekly Inj [Active]; - PMHx: 08:55 Diabetes - IDDM; Hypertension; Kidney stones; lung disease; ESRD; ss - PSHx: 08:55 Fistula L FA; Bilateral lens replacement; ss - Immunization history:: Client reports receiving the 2nd dose of the Covid vaccine. - Social history:: Smoking status: Patient denies any tobacco usage or history of. Screenin:35 Abuse screen: Denies threats or abuse. Denies injuries from another. Nutritional hb screening: No deficits noted. Tuberculosis screening: No symptoms or risk factors identified. Fall Risk None identified. Assessment: 09:00 General: Appears in no apparent distress. comfortable, well developed, Behavior is sv calm, cooperative, appropriate for age. Pain: Complains of pain in xiphoid area, mid-sternal area and epigastric area Pain does not radiate. Pain currently is 8 out of 10 on a pain scale. Quality of pain is described as sharp, Pain began this morning Is continuous. Neuro: Level of Consciousness is awake, alert, obeys commands, Oriented to person, place, time, situation, Gait is steady. Cardiovascular: Patient's skin is warm and dry. Rhythm is sinus rhythm. Cardiovascular: Dialysis shunt: in the left arm. Respiratory: Airway is patent Respiratory effort is even, unlabored, Respiratory pattern is regular, symmetrical. Derm: Skin is pink, warm \T\ dry. Musculoskeletal: Range of motion: intact in all extremities. 10:00 Reassessment: Patient appears in no apparent distress at this time. Patient and/or hb family updated on plan of care and expected duration. Pain level reassessed. Patient is alert, oriented x 3, equal unlabored respirations, skin warm/dry/pink. 10:24 Reassessment: Patient appears in no apparent distress at this time. No changes from sv previously documented assessment. Patient and/or family updated on plan of care and expected duration. Pain level reassessed. Patient is alert, oriented x 3, equal unlabored respirations, skin warm/dry/pink. 11:00 Reassessment: Patient appears in no apparent distress at this time. Patient and/or sv family updated on plan of care and expected duration. Pain level reassessed. Patient is alert, oriented x 3, equal unlabored respirations, skin warm/dry/pink. 12:02 Reassessment: Patient appears in no apparent distress at this time. Patient and/or hb family updated on plan of care and expected duration. Pain level reassessed. Patient is alert, oriented x 3, equal unlabored respirations, skin warm/dry/pink. 13:46 Reassessment: Patient appears in no apparent distress at this time. Patient and/or sv family updated on plan of care and expected duration. Pain level reassessed. Patient is alert, oriented x 3, equal unlabored respirations, skin warm/dry/pink. Vital Signs: 08:53 BP 146 / 51; Pulse 58; Resp 17; Temp 98.1(TE); Pulse Ox 100% on R/A; Weight 101.6 kg; ss Height 5 ft. 5 in. (165.10 cm); Pain 8/10; 10:14 BP 142 / 61; Pulse 62 MON; Resp 20; Pulse Ox 100% on R/A; sv 10:45 BP 132 / 52; Pulse 55; Resp 16; Pulse Ox 100% on R/A; sv 11:30 BP 139 / 56; Pulse 59; Resp 18; Pulse Ox 100% on R/A; sv 12:36 BP 142 / 61; Pulse 60; Resp 15; Pulse Ox 98% on R/A; hb 08:53 Body Mass Index 37.28 (101.60 kg, 165.10 cm) ss 10:14 Sinus Rhythm sv ED Course: 08:44 Patient arrived in ED. ds1 08:55 Triage completed. ss 08:55 Arm band placed on right wrist. ss 09:00 Patient has correct armband on for positive identification. Placed in gown. Bed in low sv position. Call light in reach. Adult w/ patient. middle school band teacher on. Pulse ox on. NIBP on. Door closed. Head of bed elevated. 09:00 Inserted saline lock: 20 gauge in right forearm, using aseptic technique. Blood sv collected. Flushed right forearm with 5 ml normal saline. 09:06 Ivon Watson RN is Primary Nurse. sv 09:12 Quentin Parsons NP is PHCP. pm1 09:12 Jarvis Arenas MD is Attending Physician. pm1 09:23 XRAY Chest (1 view) In Process Unspecified. EDMS 09:26 Basic Metabolic Panel Sent. sv 09:30 Patient maintains SpO2 saturation greater than 95% on room air. sv 09:45 COVID swab sent to lab. sv 09:52 Awaiting lab results, Awaiting radiology results. sv 11:16 Alex Sexton MD is Hospitalizing Provider. pm1 13:46 No provider procedures requiring assistance completed. Patient admitted, IV remains in sv place. intact. 19:15 Primary Nurse role handed off by Ivon Watson RN Administered Medications: 10:43 Drug: Aspirin Chewable Tablet 324 mg Route: PO; sv 10:43 Drug: morphine 4 mg {Note: rass1.} Route: IVP; Site: right forearm; sv 10:43 Drug: Zofran (Ondansetron) 4 mg Route: IVP; Site: right forearm; sv Outcome: 11:16 Decision to Hospitalize by Provider. pm1 13:46 Admitted to ER Hold. Please see [facility] for further documentation. sv 13:46 Condition: stable 13:46 Instructed on the need for admit. 21:09 Patient left the ED. jb4 Signatures: Dispatcher [employer] EDMS Ivon Watson RN RN Ashleigh Flowers ds1 Rossy Salvador RN RN Quentin Parsons, EZIO QUALITY TECH pm1 Karey Delatorre RN RN hb Bryson, James, RN RN jb4 Corrections: (The following items were deleted from the chart) 09:49 09:30 Inserted saline lock: 20 gauge in right forearm, using aseptic technique. Blood sv collected. Flushed right forearm with 5 ml normal saline sv
--- NOTE | 2021-06-01 11:17 | EDPHYS ---
Physician Documentation [facility] Name: Errol Soler Age: 70 yrs Sex: Male : 1950 Arrival Date: 06/01/2021 Time: 08:44 Bed 2 Private MD: RICHA Physician Jarvis Arenas HPI: 06/01 09:15 This 70 yrs old Male presents to ER via Wheelchair with complaints of Chest pm1 Pain. 09:15 The patient or guardian reports chest pain that is located primarily in the mid-sternal pm1 area. Onset: this morning, at 05:00. The pain does not radiate. Associated signs and symptoms: Pertinent positives: nausea, shortness of breath, Pertinent negatives: Fever. The chest pain is described as a pressure. Duration: The patient or guardian reports a single episode, that is still ongoing. Severity of pain: in the emergency department the pain is a 6 / 10. The patient has not experienced similar symptoms in the past. The patient has not recently seen a physician, the patient's primary care provider is Dr. Hazel, Cardiology - Dr. Mello, Nephrology - [facility]. Historical: - Allergies: 08:55 Cephalexin; ss - Home Meds: 10:44 vasepa 1gm 2 tabs BID [Active]; sodium bicarbonate 650 mg Oral tab 2 tab twice a day sv [Active]; Vitamin D3 50 mcg (2,000 unit) oral cap daily [Active]; aspirin 81 mg Oral chew 1 tab once daily [Active]; carvedilol 25 mg oral tab 2 times per day [Active]; amlodipine-benazepril 10-40 mg oral cap 1 cap once daily [Active]; Lasix 40 mg Oral tab 1 tab once daily [Active]; ventassa 8.4 mg daily [Active]; Levemir U-100 Insulin 100 unit/mL subcutaneous soln 32 unit twice a day [Active]; multivitamin Oral daily [Active]; trujenta 5 mg daily [Active]; atorvastatin 40 mg oral tab once daily [Active]; Iron CR 250 mg Oral cpER twice weekly [Active]; Procrit 1000 units weekly Inj [Active]; - PMHx: 08:55 Diabetes - IDDM; Hypertension; Kidney stones; lung disease; ESRD; ss - PSHx: 08:55 Fistula L FA; Bilateral lens replacement; ss - Immunization history:: Client reports receiving the 2nd dose of the Covid vaccine. - Social history:: Smoking status: Patient denies any tobacco usage or history of. ROS: 09:15 Constitutional: Negative for fever, chills, and weight loss. pm1 09:15 Respiratory: Negative for shortness of breath, cough, wheezing, and pleuritic chest pain. 09:15 Back: Negative for injury and pain, MS/Extremity: Negative for injury and deformity, Skin: Negative for injury, rash, and discoloration, Neuro: Negative for headache, weakness, numbness, tingling, and seizure. 09:15 Cardiovascular: Positive for chest pain, Negative for edema, palpitations. 09:15 Abdomen/GI: Positive for nausea and vomiting, Negative for diarrhea, constipation. 09:15 All other systems are negative. Exam: 09:15 Constitutional: This is a well developed, well nourished patient who is awake, alert, pm1 and in no acute distress. Head/Face: Normocephalic, atraumatic. 09:15 Back: No spinal tenderness. No costovertebral tenderness. Full range of motion. Skin: Warm, dry with normal turgor. Normal color with no rashes, no lesions, and no evidence of cellulitis. MS/ Extremity: Pulses equal, no cyanosis. Neurovascular intact. Full, normal range of motion. 09:15 Cardiovascular: Exam negative for acute changes, Rate: normal, Rhythm: regular, Pulses: no pulse deficits are appreciated, Heart sounds: normal, normal S1and S2, Edema: pedal edema, that is moderate. 09:15 Respiratory: Exam negative for acute changes, respiratory distress, shortness of breath, Breath sounds: are clear throughout. 09:15 Abdomen/GI: Inspection: obese Palpation: abdomen is soft and non-tender, in all quadrants. 09:15 Neuro: Exam negative for acute changes, Orientation: is normal, Mentation: is normal, Motor: is normal, moves all fours. Vital Signs: 08:53 BP 146 / 51; Pulse 58; Resp 17; Temp 98.1(TE); Pulse Ox 100% on R/A; Weight 101.6 kg; ss Height 5 ft. 5 in. (165.10 cm); Pain 8/10; 10:14 BP 142 / 61; Pulse 62 MON; Resp 20; Pulse Ox 100% on R/A; sv 10:45 BP 132 / 52; Pulse 55; Resp 16; Pulse Ox 100% on R/A; sv 11:30 BP 139 / 56; Pulse 59; Resp 18; Pulse Ox 100% on R/A; sv 12:36 BP 142 / 61; Pulse 60; Resp 15; Pulse Ox 98% on R/A; hb 08:53 Body Mass Index 37.28 (101.60 kg, 165.10 cm) ss 10:14 Sinus Rhythm sv MDM: 09:24 Patient medically screened. pm1 11:15 Data reviewed: vital signs. Data interpreted: Pulse oximetry: on room air is 100 %. pm1 Interpretation: normal. Counseling: I had a detailed discussion with the patient and/or guardian regarding: the historical points, exam findings, and any diagnostic results supporting the discharge/admit diagnosis, lab results, radiology results, the need for further work-up and treatment in the hospital. 06/01 09:07 Order name: Basic Metabolic Panel 06/01 09:07 Order name: CBC with Diff; Complete Time: 10:13 06/01 09:07 Order name: LFT's; Complete Time: 10:13 06/01 09:07 Order name: Magnesium; Complete Time: 10:13 06/01 09:07 Order name: NT PRO-BNP; Complete Time: 10:13 06/01 09:07 Order name: PT-INR; Complete Time: 10:13 06/01 09:07 Order name: Troponin (emerg Dept Use Only); Complete Time: 10:13 06/01 09:07 Order name: Basic Metabolic Panel; Complete Time: 10:13 EDGA 06/01 10:47 Order name: SARS-COV-2 RT PCR; Complete Time: 11:31 EDMS 06/01 15:46 Order name: Troponin I; Complete Time: 16:05 EDMS 06/01 15:49 Order name: Protime (+INR); Complete Time: 16:05 EDMS 06/01 15:49 Order name: D-Dimer; Complete Time: 16:05 EDMS 06/01 16:40 Order name: Glucose, Ancillary Testing; Complete Time: 17:07 EDMS 06/01 09:07 Order name: XRAY Chest (1 view); Complete Time: 10:13 sv 06/01 09:07 Order name: EKG; Complete Time: 09:07 sv 06/01 09:07 Order name: Cardiac monitoring; Complete Time: 09:23 sv 06/01 09:07 Order name: EKG - Nurse/Tech; Complete Time: 09:23 sv 06/01 09:07 Order name: IV Saline Lock; Complete Time: 09:23 sv 06/01 09:07 Order name: Labs collected and sent; Complete Time: 09: sv 06/01 09:07 Order name: O2 Per Protocol; Complete Time: 09:23 sv 06/01 09:07 Order name: O2 Sat Monitoring; Complete Time: 09:23 sv 06/01 12:38 Order name: Diet Ada 1800 Xavier; Complete Time: 12:39 sv Administered Medications: 10:43 Drug: Aspirin Chewable Tablet 324 mg Route: PO; sv 10:43 Drug: morphine 4 mg {Note: rass1.} Route: IVP; Site: right forearm; sv 10:43 Drug: Zofran (Ondansetron) 4 mg Route: IVP; Site: right forearm; sv Disposition: 06/02 08:48 Co-signature as Attending Physician, Jarvis Arenas MD I agree with the assessment and nichelle plan of care. Disposition Summary: 06/01/21 11:16 Hospitalization Ordered Hospitalization Status: Observation pm1 Provider: Alex Sexton pm1 Condition: Stable pm1 Problem: new pm1 Symptoms: have improved pm1 Bed/Room Type: Standard pm1 Location: Telemetry/MedSurg (observation)(06/01/21 20:00) Room Assignment: [facility](06/01/21 20:54) cg Diagnosis - Chest pain, unspecified pm1 Forms: - Medication Reconciliation Form pm1 - SBAR form pm1 Signatures: Dispatcher [employer] Ivon Gaspar RN RN sv Anderson, Corey, MD MD cha Smirch, Shelby, RN RN ss Garcia, Cindy, RN RN cg Quentin Parsons NP OPERATIONS OFFICER AFLOAT pm1 Corrections: (The following items were deleted from the chart) 06/01 09:57 09:28 CORONAVIRUS+MR.LAB.BRZ ordered. EDMS EDMS 13:46 11:16 Telemetry/MedSurg (observation) pm1 sv 13:46 11:16 pm1 sv 20:00 13:46 [facility] ER HOLD sv cg 20:00 13:46 ERHOLD- sv cg 20:54 20:00 207 cg cg
[2021-06-01] MEDS ORDERED: LABETALOL 20 MG/4ML SYRINGE IV PRN (14:27)
[2021-06-01] MEDS ORDERED: ACETAMINOPHEN 500 MG TAB PO PRN (14:28)
[2021-06-01] MEDS ORDERED: ONDANSETRON 4 MG/2 ML VIAL IV PRN (14:28)
[2021-06-01] MEDS ORDERED: GLUCAGON 1 MG/VIAL IM PRN (14:36)
[2021-06-01] MEDS ORDERED: D50W 25 GM/50 ML SYRINGE IV PRN (14:36)
--- NOTE | 2021-06-01 14:37 | P.HP ---
Certification for Inpatient Patient admitted to: Inpatient With expected LOS: >2 Midnights Patient will require the following post-hospital care: None Practitioner: I am a practitioner with admitting privileges, knowledge of patient current condition, hospital course, and medical plan of care. Services: Services provided to patient in accordance with Admission requirements found in Title 42 Section 412.3 of the Code of Federal Regulations Patient History Date of Service: 06/01/21 Reason for admission: Chest pain History of Present Illness: Patient is a 70-year-old male with a past medical history significant for CKD, hypertension, HLD, DM 2 who presents with complaint of chest pain onset this morning. Patient reported that chest pain is located in the substernal chest area. Patient rated pain as 8/10 in severity and described pain as pressure in quality. Patient reports associated signs and symptoms of nausea. Patient reported that he recently had a left forearm fistula placed. Patient denies any other signs or symptoms. Symptoms are aggravated or relieved by nothing. Patient decided to present to the hospital due to worsening symptoms. Allergies cephalexin Allergy (Verified 05/04/21 09:14) Rash Home Medications: Aspirin [Aspirin EC 81 MG] 81 mg PO DAILY 11/22/14 Linagliptin [Tradjenta] 5 mg PO DAILY 11/22/14 Multivitamin [Multivitamins] 1 each PO DAILY 11/22/14 Furosemide [Lasix*] 40 mg PO BID 08/18/15 Insulin Detemir [Levemir Flextouch] 32 unit SQ BID 08/18/15 carvediloL [Coreg*] 25 mg PO BID 08/18/15 Ferrous Sulfate [Iron] 325 mg PO DIRECTED 12/16/17 Icosapent Ethyl [Vascepa] 2 tab PO BID 09/16/20 Amlodipine Besylate/Benazepril [Amlodipine-Benazepril 10-40 mg] 1 cap PO DAILY 05/04/21 Atorvastatin Calcium 1 tab PO DAILY 05/04/21 Patiromer Calcium Sorbitex [Veltassa] 8.4 gm PO DAILY 05/04/21 Cholecalciferol (Vitamin D3) [Vitamin D3] 50 mcg PO DAILY 06/01/21 Procit 1,000 units SQ EVERY 7TH DAY 06/01/21 Sodium Bicarbonate 1,300 mg PO BID 06/01/21 - Past Medical/Surgical History Diabetic: Yes -: IDDM -: HTN -: kidney stones -: lung disease -: ESRD -: L FA fistula -: Barry lens replacement - Family History Father -: Heart disease, Hypertension Mother -: Diabetes, Cancer Brother -: Heart disease, Diabetes Sister -: Diabetes - Social History Smoking Status: Unknown if ever smoked Caffeine use: No Place of Residence: Home Review of Systems General: Unremarkable Eyes: Unremarkable ENT: Unremarkable Respiratory: Unremarkable Cardiovascular: Chest Pain Gastrointestinal: Nausea Genitourinary: Unremarkable Musculoskeletal: Unremarkable Integumentary: Unremarkable Neurological: Unremarkable Lymphatics: Unremarkable Physical Examination - Physical Exam General: Alert, In no apparent distress, Oriented x3 HEENT: Atraumatic, PERRLA, Mucous membr. moist/pink, EOMI, Sclerae nonicteric Neck: Supple, 2+ carotid pulse no bruit, No LAD, Without JVD or thyroid abnormality Respiratory: Clear to auscultation bilaterally, Normal air movement Cardiovascular: Regular rate/rhythm, Normal S1 S2 Gastrointestinal: Normal bowel sounds, No tenderness Musculoskeletal: No tenderness Integumentary: No rashes Neurological: Normal gait, Normal speech, Normal tone, Normal affect Lymphatics: No axilla or inguinal lymphadenopathy External genitalia: Deferred Rectal: Deferred - Studies Laboratory Data (last 24 hrs) 06/01/21 09:15: PT 12.5, INR 1.09 06/01/21 09:15: WBC 5.60, Hgb 9.2 L, Hct 28.0 L, Plt Count 140 L 06/01/21 09:15: Sodium 147 H, Potassium 4.6, BUN 60 H, Creatinine 4.02 H, Glucose 98, Magnesium 2.4, Total Bilirubin 0.4, AST 26, ALT 28, Alkaline Phosphatase 65 Assessment and Plan - Plan --Chest pain. Unclear etiology. Will trend troponin. Cardiology consulted. Echocardiogram pending. Telemetry to monitor for any significant arrhythmia. Further management per cardiology --DM2. BS monitoring with sliding scale insulin. --CKD 5. Patient been prepared for dialysis. Had a recent left forearm fistula placed 2 weeks ago. Nephrology consulted. Will await further recommendations. --HLD. Continue statin. ---Anemia of chronic disease. Patient reported that he was scheduled for Procrit injection. Nephrology on board. --Hypertension. Continue home medications. --Nausea. Antiemetics on board. --Elevated D-dimer. VQ scan pending. Continue supportive care. --DVT prophylaxis with heparin subQ. Case discussed withpatient and nurse. Discharge disposition. Continue hospital stay. The following document was completed using voice recognition software. This can produce supervisor heading errors that can at times significantly distort words and phrases. Please interpret any aspect of the note that is nonsensical in light of this fact. Discharge Plan: Home Plan to discharge in: 48 Hours - Advance Directives Does patient have a Living Will: No Does patient have a Durable POA for Healthcare: No - Code Status/Comfort Care Code Status Assessed: Yes Code Status: Full Code Physician Review: Patient Assessed, Agree with Above Assessment and Plan Critical Care: No
[2021-06-01 15:42] LABS: Protime INR 1.1
[2021-06-01] MEDS: INSULIN -REGULAR HUMAN 50 UNIT/0.5 ML ML SQ SCH ×2 (16:30→21:00)
[2021-06-01] MEDS ORDERED: HEPARIN 5000 UNIT/ML 1 ML VIAL ONE (16:46)
[2021-06-01] MEDS: HEPARIN 5000 UNIT/ML 1 ML VIAL SQ SCH (16:53)
--- NOTE | 2021-06-01 16:56 | EKG ---
Test Date: 2021-06-01 Test Time: 09:10:47 Deputy Sheriff Lieutenant: SV MEASUREMENT RESULTS: Intervals: Rate: 61 SC: 158 QRSD: 84 QT: 436 QTc: 438 [place]: P: 46 SC: 158 QRS: 16 T: 42 INTERPRETIVE STATEMENTS: Normal sinus rhythm Normal ECG Compared to ECG 10/18/2016 11:41:04 No significant changes Electronically Signed On 06-01-21 16:55:29 CDT by Lencho Mello
[2021-06-01 17:27] VITALS: BMI 37.0
[2021-06-02] MEDS: HEPARIN 5000 UNIT/ML 1 ML VIAL SQ SCH ×2 (01:42→09:00)
[2021-06-02 01:49] LABS: Urine Appearance CLEAR (Clear); Urine Bilirubin NEGATIVE (Negative); Urine Blood TRACE (Negative); Urine Color YELLOW (Yellow); Urine Glucose TRACE (Negative); Urine Protein 3+ (Negative); Urine Urobilinogen 0.2 mg/dL (0.2-1.0); Urine pH 5.5 (5.0-7.0)
[2021-06-02 03:17] LABS: Urine Microscopic Reflex ORDER UMIC
[2021-06-02 03:33] LABS: Urine Bacteria <20 /HPF (NONE SEEN); Urine RBC <5 /HPF (NONE SEEN)
[2021-06-02 06:41] LABS: Absolute Lymphocytes (CBC) 0.9 K/uL (0.7-4.9); Basophils % 0.8 % (0-1.3); Hematocrit 25.5 % (39.6-49.0); Lymphocytes % 20.7 % (15.3-44.8); MPV 10.4 fL (7.6-11.3); RBC Red Blood Cell Count 2.66 M/uL (4.33-5.43)
[2021-06-02 06:50] LABS: Potassium 5.2 mmol/L (3.5-5.1)
[2021-06-02] MEDS: INSULIN -REGULAR HUMAN 50 UNIT/0.5 ML ML SQ SCH ×2 (07:30→11:30)
--- NOTE | 2021-06-02 08:47 | RAD REPORT ---
EXAM DESCRIPTION: NM - Vent Perfusion VQ Scan - 06/02/2021 8:32 am CLINICAL HISTORY: r o PE COMPARISON: 06/01/2021 TECHNIQUE: The patient was administered approximately 20 mCi Xenon 133 gas with posterior projection inspiration, equilibrium, and washout views obtained. The patient was then administered approximatel y 7 mCi Tc-99m SC labeled RBCs followed by standard 8 view protocol. FINDINGS: There is good distribution of the Xenon with no ventilation defects identified. Air trappi ng is present. Perfusion images show no defects suspicious for pulmonary emboli. IMPRESSION: Normal V/Q Scan.
[2021-06-02] MEDS ORDERED: ASPIRIN 81 MG CHEWABLE TABLET PO SCH (09:00)
[2021-06-02] MEDS ORDERED: EPOETIN ALFA 10,000 UNIT/ML VIAL SQ ONE (12:00)
[2021-06-02 12:03] VITALS: O2SAT 97
--- NOTE | 2021-06-02 12:43 | P.DS ---
Admission Date: 06/01/21 Discharge Date: 06/02/21 Disposition: ROUTINE DISCHARGE Discharge Condition: FAIR Reason for Admission: Chest pain Consultations: Cardiology-Dr. Mello - Problems (1) Chest pain Status: Acute (2) Essential hypertension Status: Acute (3) Chronic kidney disease, stage 4 (severe) Status: Acute (4) Anemia Status: Acute Brief History of Present Illness: 70-year-old gentleman with a past medical history of CKD, hypertension, hyperlipidemia, DM type 2 presented with a complaint of chest pain. Patient reports associated nausea. He recently had a left forearm fistula placed and being prepped for dialysis. Patient was hospitalized for ACS rule out. Hospital Course: Patient admitted to the medical floor. Troponin trended negative. Patient was seen in consultation by Dr. Mello, V/Q scan was performed which did not suggest PE. Patient cleared for discharge by cardiology. He will follow with Dr. Mello as an outpatient for stress test. He is deemed stable for disc [facility]. Vital Signs/Physical Exam: Temp Pulse Resp BP Pulse Ox 97.4 F 64 17 183/64 H 96 06/02/21 08:00 06/02/21 08:00 06/02/21 08:00 06/02/21 08:00 06/02/21 08:00 General: Alert, In no apparent distress, Oriented x3 HEENT: Mucous membr. moist/pink Neck: JVD not distended Respiratory: Clear to auscultation bilaterally, Normal air movement Cardiovascular: No edema, Regular rate/rhythm, Normal S1 S2 Gastrointestinal: Soft and benign, Non-distended, No tenderness Musculoskeletal: No swelling Integumentary: No rashes Neurological: Normal strength at 5/5 x4 extr Laboratory Data at Discharge: WBC 4.60 K/uL (4.3-10.9) D 06/02/21 05:46 Hgb 8.4 g/dL (13.6-17.9) L 06/02/21 05:46 Hct 25.5 % (39.6-49.0) L 06/02/21 05:46 Plt Count 119 K/uL (152-406) L 06/02/21 05:46 PT 12.7 SECONDS (9.5-12.5) H 06/01/21 15:15 INR 1.10 06/01/21 15:15 Sodium 146 mmol/L (136-145) H 06/02/21 05:46 Potassium 5.2 mmol/L (3.5-5.1) H 06/02/21 05:46 BUN 58 mg/dL (7-18) H 06/02/21 05:46 Creatinine 4.31 mg/dL (0.55-1.3) H 06/02/21 05:46 Glucose 84 mg/dL (74-106) 06/02/21 05:46 Magnesium 2.4 mg/dL (1.8-2.4) 06/01/21 09:15 Total Bilirubin 0.4 mg/dL (0.2-1.0) 06/01/21 09:15 AST 26 U/L (15-37) 06/01/21 09:15 ALT 28 U/L (12-78) 06/01/21 09:15 Alkaline Phosphatase 65 U/L (45-117) 06/01/21 09:15 Troponin I < 0.02 ng/mL (0.0-0.045) 06/02/21 05:46 Home Medications: Aspirin [Aspirin EC 81 MG] 81 mg PO DAILY 11/22/14 Linagliptin [Tradjenta] 5 mg PO DAILY 11/22/14 Multivitamin [Multivitamins] 1 each PO DAILY 11/22/14 Furosemide [Lasix*] 40 mg PO BID 08/18/15 carvediloL [Coreg*] 25 mg PO BID 08/18/15 Ferrous Sulfate [Iron] 325 mg PO DIRECTED 12/16/17 Icosapent Ethyl [Vascepa] 2 tab PO BID 09/16/20 Amlodipine Besylate/Benazepril [Amlodipine-Benazepril 10-40 mg] 1 cap PO DAILY 05/04/21 Atorvastatin Calcium 1 tab PO DAILY 05/04/21 Patiromer Calcium Sorbitex [Veltassa] 8.4 gm PO DAILY 05/04/21 Cholecalciferol (Vitamin D3) [Vitamin D3] 50 mcg PO DAILY 06/01/21 Procit 1,000 units SQ EVERY 7TH DAY 06/01/21 Sodium Bicarbonate 1,300 mg PO BID 06/01/21 Calcitrol [Rocaltrol*] 0.25 mcg PO Q48H #15 cap 06/02/21 New Medications: Calcitrol [Rocaltrol*] 0.25 mcg PO Q48H #15 cap Diet: ADA Activity: Ad yasmin Followup: Ana Luisa Hazel DO [Primary Care Provider] - Lencho Mello MD [ACTIVE - CAN ADMIT] - 1 Week
[2021-06-02] MEDS ORDERED: CALCITROL 0.25 MCG CAP PO SCH (13:00)
[2021-06-02] MEDS ORDERED: SODIUM BICARB 325 MG TAB PO SCH (13:00)
[2021-06-02 13:15] VITALS: BP 176/59; TEMP 99
--- NOTE | 2021-06-02 14:01 | CON ---
Date of Consultation: 06/01/2021 Reason For Consultation: Chest pain. History Of Present Illness: Mr. Soler is a 70-year-old, has a history of end-stage renal disease, aparicio s a history of hypertension, dyslipidemia, and diabetes. He came in with atypical chest pain, left-s ided, sharp, stabbing, ache-like without any nausea, vomiting, diaphoresis, PND, orthopnea, pedal car ma, palpitation, or syncope. He denied fever or chills. His symptoms were not related to food, time of the day, or body position. His [place] has ruled out already. He does have a D-dimer of 1084. He is a dialysis patient. His creatinine is 4.31. His hemoglobin of 8.4. V/Q scan was negative. Past Medical History: As stated above. He is alert. Allergies: TO CEPHALEXIN. Review of Systems: Negative. Social History: Negative. Family History: Positive for diabetes and hypertension. Medications: At home include Vascepa, Coreg, Tradjenta, aspirin, Lipitor, Lotrel. Physical Examination: Vital Signs: Stable. Afebrile. HEENT: Negative. Neck: Supple with no bruit. Chest: Clear to auscultation and percussion. Cardiac: Revealed a regular rhythm and rate. No murmurs, gallops, or rubs. Abdomen: Benign. Extremities: Revealed no clubbing, cyanosis, or edema. Diagnostic Data: EKG was nonspecific. Chest x-ray was normal. Rest of the diagnostic data as state d earlier. Impression And Plan: 1.Atypical chest pain. 2.End-stage renal disease. 3.Hypertension. 4.Diabetes. 5.Dyslipidemia. 6.Anemia. 7.Elevated D-dimer, probably secondary to renal failure. The V/Q scan is negative. I am comfortable with Mr. Soler going home. I will make arrangement for h im to have an echocardiogram and an MPI and I will see him soon. ANTHONY/DOROTEO Voice ID: [id number] Report ID: [id number]
--- NOTE | 2021-06-02 15:37 | CON ---
Reason For Consultation: Elevated BUN and creatinine, fluid management. History Of Present Illness: This is a pleasant 70-year-old gentleman, well known to me from the office with significant past medical history of diabetes complicated with neuropathy and nephropathy, hypertension, edema, nephrolithiasis, CAD, follows up with Dr. Mello, chronic kidney disease stage 5 secondary to diabetes nephropathy, hypertension nephrosclerosis, normal size kidney with proteinuria, last seen in the office on May 27. At that time, his creatinine was 3.8, GFR of 15 with BUN of 69. The patient came to the hospital complaining from chest pain and chest tightness. Primary workup showed elevation in BUN and creatinine. For that reason, we have been consulted. On the last visit in the office, the patient had AV fistula placed, radial cephalic. No change was made on his medications. Past Medical History: Includes; 1. Diabetes complicated with neuropathy and nephropathy. 2. Hypertension. 3. CAD. 4. Chronic kidney disease stage 5/4 secondary to diabetes and hypertension nephrosclerosis, status post AV fistula. 5. Cirrhosis. Allergies: TO CEPHALEXIN. Home Medications: Include; 1. Aspirin. 2. Tradjenta. 3. Multivitamin. 4. Lasix 40 b.i.d. 5. Insulin. 6. Carvedilol. 7. tyleol 8. Amlodipine and benazepril. 9. Atorvastatin. 10. Cholecalciferol. 11. Procrit. 12. Sodium bicarb. Past Surgical History: Includes; 1. AV fistula creation. 2. Cataract surgery. Family History: Positive for CAD, hypertension, and diabetes. Social History: Denied smoking. Denied drinking. Denied drugs abuse. Review of Systems: Head and Neck: No red eye. No ear pain. GI: Has abdominal distention. Has abdominal pain. : No polyuria. No dysuria. No hematuria. Aviation Consultant: Not applicable. Respiratory: No shortness of breath. Cardiovascular: Has chest pain. Endocrine: No polydipsia. Skin: No rash. Physical Examination: General: When I saw the patient; the patient lying in bed, not on any distress. Vital Signs: Blood pressure slightly on the upper side 180/64, pulse of 64, afebrile. Chest: Clear to auscultation. Heart: S1, S2. Systolic murmur. Abdomen: No organomegaly. Questionable ascites. Extremity: +1 edema. Neurologic: Alert. No focality. No tremor. Laboratory Data: WBC 4.6, H and H 8.4/25.5, platelets 119. Sodium 146, potassium 5.2, bicarb 22, BUN 58, creatinine 4.3, GFR of 14, calcium of 8. Current Medications: The patient on include aspirin, heparin, labetalol, Zofran, insulin. Assessment And Plan: 1. Chronic kidney disease, stage 4/5, fluctuating around his baseline GFR of 14, slightly on the over volume side. I am going to go ahead and resume the Lasix as 40 b.i.d. IV and we will continue to monitor the patient. No significant hyperkalemia. No significant acidosis. I do not see the need to initiate any renal replacement therapy. 2. Hypertension, not controlled. Resume Lasix and amlodipine. Hold any YASMANI inhibitor or ARB. 3. Acidosis. I will resume the sodium bicarb. 4. Anemia of chronic kidney disease. The patient scheduled for dose of Procrit today. We will give it to him. 5. Secondary hyperparathyroidism. Resume calcitriol. 6. Coronary artery disease. We will follow up with Cardiology. If the patient is going to need cardiac cath that may drift him to end-stage, at that time we are going to have to initiate dialysis. I had long discussion with the patient, explained to him the risks, benefits and alternatives. The patient on agreement with any plan. We will follow up with Cardiology. 7. Hyperkalemia, marginal. We will resume Lasix. Time spent examining the patient [id number] placing order discussing with the patient reviewing data discussing the case with all of our subspecialty including hospitalist 75 minutes MATTIE Voice ID: [id number] Report ID: [id number] JOYA
[2021-06-02] MEDS ORDERED: FUROSEMIDE 40 MG/4 ML VIAL IV SCH (17:00)
[2021-06-02] MEDS ORDERED: carvediloL 25 MG TAB PO SCH (21:00)
--- NOTE | 2021-06-03 07:26 | ECHO ---
HEIGHT: 5 ft 5 in WEIGHT: 222 lb 10.67 oz DATE OF STUDY: 06/02/[address]: Libby Hayes 2-DIMENSIONAL: YES M.MODE: YES DOPPLER: YES COLOR FLOW: YES TDS: PORTABLE: DEFINITY: BUBBLE STUDY: DIAGNOSIS: CHEST PAIN CARDIAC HISTORY: CATHERIZATION: SURGERY: PROSTHETIC VALVE: PACEMAKER: MEASUREMENTS (cm) DIASTOLIC (NORMALS) SYSTOLIC (NORMALS) IVSd 1.1 (0.6-1.2) LA Diam 4.1 (1.9-4.0) LVEF 79% LVIDd 5.4 (3.5-5.7) LVIDs 2.8 (2.0-3.5) %FS 48% LVPWd 1.0 (0.6-1.2) Ao Diam 3.2 (2.0-3.7) 2 DIMENSIONAL ASSESSMENT: RIGHT ATRIUM: LEFT ATRIUM: RIGHT VENTRICLE: LEFT VENTRICLE: TRICUSPID VALVE: MITRAL VALVE: PULMONIC VALVE: AORTIC VALVE: PERICARDIAL EFFUSION: TRACE AORTIC ROOT: LEFT VENTRICULAR WALL MOTION: DOPPLER/COLOR FLOW: COMMENTS: NORMAL 2-DIMENSIONAL ECHOCARDIOGRAM WITH DOPPLER. NO WALL MOTION ABNORMALITY. TRACE EFFUSION. MILD TRICUSPID REGURGITATION. TECHNOLOGIST: DAMIAN DALE
[2021-06-03] MEDS ORDERED: MULTIVITAMIN TAB PO SCH (09:00)
[2021-06-03] MEDS ORDERED: ATORVASTATIN 40 MG TAB PO SCH (09:00)
[2021-06-03] MEDS ORDERED: ASPIRIN EC 81 MG TAB PO SCH (09:00)
[2021-06-03] MEDS ORDERED: VITAMIN D 1000 UNIT TAB PO SCH (09:00)
[2021-06-03] MEDS ORDERED: AMLODIPINE 10 MG TAB PO SCH (09:00)
== END 2021-06-02 14:12 | disposition home or self-care (01) | DRG 313 ==
LOC: ER 08:44 → ERHOLD 13:34 → 2ND 20:54
PROVIDERS: ADMIT Hospitalist; ATTEND Internal Medicine
DX: R07.89 Other chest pain (principal); I12.0 Hypertensive chronic kidney disease with stage 5 chronic kidney disease or end stage renal disease; N18.5 Chronic kidney disease, stage 5; E87.2 Acidosis; N25.81 Secondary hyperparathyroidism of renal origin; R11.0 Nausea; E11.22 Type 2 diabetes mellitus with diabetic chronic kidney disease; E11.40 Type 2 diabetes mellitus with diabetic neuropathy, unspecified; E11.21 Type 2 diabetes mellitus with diabetic nephropathy; I25.10 Atherosclerotic heart disease of native coronary artery without angina pectoris; D63.1 Anemia in chronic kidney disease; E87.5 Hyperkalemia; R79.1 Abnormal coagulation profile; Z20.822 Contact with and (suspected) exposure to COVID-19
CPT/HCPCS: 36415; 71045; 78582; 80048; 80076; 81003; 81015; 82947; 83735; 83880; 84484; 85025; 85379; 85610; 93005; 93306; 96374; 96375; 99285; A9540; A9558; J1644; J1940; J2405; Q5105; U0003

== ENCOUNTER 2021-10-26 09:03 | Day surgery (SDC) | payer OTHER ==
[2021-10-26 09:51] LABS: Hematocrit 29.3 % (39.6-49.0)
[2021-10-26 09:52] VITALS: BP 146/53; TEMP 97.4; O2SAT 100; BMI 34.8
[2021-10-26] MEDS ORDERED: EPOETIN ALFA-EPBX 10,000 UNIT/ML VIAL ONE (09:58)
== END 2021-10-26 10:00 | disposition home or self-care (01) ==
LOC: DS 09:03
PROVIDERS: ATTEND Internal Medicine
DX: N18.5 Chronic kidney disease, stage 5 (principal); N17.9 Acute kidney failure, unspecified; R80.9 Proteinuria, unspecified; D63.1 Anemia in chronic kidney disease; D64.9 Anemia, unspecified
CPT/HCPCS: 36415; 85018; 85014; 96372; Q5106

== ENCOUNTER 2024-12-13 06:25 | Day surgery (SDC) | payer MEDICARE, OTHER ==
[2024-12-10 16:07] LABS: Absolute Basophils 0.1 K/uL (0-0.5); Absolute Eosinophils 0.3 K/uL (0-0.5); Absolute Monocytes 0.8 K/uL (0.1-1.3); Absolute Neutrophil 5.1 K/uL (1.8-8.0); Basophils % 0.8 % (0-1.3); Eosinophils % 4.5 % (0-4.4); Hematocrit 30.2 % (39.6-49.0); Hemoglobin 10.6 g/dL (13.6-17.9); Lymphocytes % 14.1 % (15.3-44.8); MCH 34.7 pg (27.0-35.0); MCHC 35.3 g/dL (32.0-36.0); MCV 98.3 fL (80-100); MPV 9.8 fL (7.6-11.3); Monocytes % 10.7 % (3.3-12.3); Neutrophils % 69.9 % (41.7-73.7); Platelets 160 thou/uL (152-406); RBC Red Blood Cell Count 3.07 M/uL (4.33-5.43); Red Cell Distribution Width 13.9 % (12.1-15.2)
[2024-12-10 16:26] LABS: Anion Gap 9.4 mEq/L (5.0-15.0); Potassium 3.4 mEq/L (3.5-5.1)
--- NOTE | 2024-12-12 12:35 | EKG ---
Test Date: 2024-12-10 Test Time: 15:47:43 Maintenance Technician 3Rd Shift: JAZIEL MEASUREMENT RESULTS: Intervals: Rate: 81 [place]: 154 QRSD: 108 QT: 418 QTc: 485 [place]: P: 56 [place]: 154 QRS: 19 T: 116 INTERPRETIVE STATEMENTS: Normal sinus rhythm Left ventricular hypertrophy with repolarization abnormality Prolonged QT Abnormal ECG Compared to ECG 01/06/2022 11:47:00 Left ventricular hypertrophy now present Early repolarization now present Prolonged QT interval now present Myocardial infarct finding no longer present Electronically Signed On 12-12-24 12:27:00 CDT by Crow Moreira
[2024-12-13] MEDS ORDERED: propofoL 200 MG/20 ML VIAL IV ONE (07:07)
[2024-12-13] MEDS ORDERED: LIDOCAINE 1% MPF 5 ML VIAL ONE (07:07)
[2024-12-13] MEDS: NA CHLORIDE 0.9% 500 ML ONE (07:15)
[2024-12-13 09:15] VITALS: O2SAT 100
[2024-12-13 09:17] VITALS: BP 159/61; TEMP 98.5
== END 2024-12-13 09:02 | disposition home or self-care (01) ==
LOC: OR 06:25
PROVIDERS: ATTEND Surgery
PROC: 0DBL8ZX Excision of Transverse Colon, Via Natural or Artificial Opening Endoscopic, Diagnostic (ICD-10-PCS; 2024-12-13)
PROC: 0DBM8ZX Excision of Descending Colon, Via Natural or Artificial Opening Endoscopic, Diagnostic (ICD-10-PCS; principal; 2024-12-13 07:30)
DX: Z12.11 Encounter for screening for malignant neoplasm of colon (principal); K64.4 Residual hemorrhoidal skin tags; K64.8 Other hemorrhoids; D12.4 Benign neoplasm of descending colon; D12.3 Benign neoplasm of transverse colon
CPT/HCPCS: 45384; 93005; 85025; 80048; 36415; 82947; 88305; J2704; J2003; J7040